=== PATIENT | male | born 1960 | race Caucasian/White ===

== ENCOUNTER 2016-08-18 17:16 | Emergency (ER) | payer MEDICARE ==
[~2016-08-18] VITALS: Ht 180.3 cm; Wt 78.0 kg
[~2016-08-18 17:16] MED LIST: 'XANAX1 MG PO; AMLODIPINE BESYL5 MG PO; APAP/OXYCODONE1 TA2 PO; ASPIRIN81 M1 PO; ATIVAN1 MG PO; ATORVASTATIN CA40 M1 PO; CARVEDILOL12.5 MG PO; CIPROFLOXACIN500 MG PO; CLOPIDOGREL75 MG PO; COREG12.5 MG PO; DOXYCYCLINE100 M3 PO; LIPITOR40 MG PO; LISINOPRIL5 MG PO; MULTI VITAMINS1 TAB PO; NATURE'S BLEND F1 MG PO; NITROTAB0.3 MG SL; OXYCODONE/APAP1 TA2 PO; PLAVIX75 MG PO; PREDNISONE10 MG PO; PROVENTIL0.09 MG/A1 INH; VITAMIN B-11 TAB PO; XANAX1 MG PO; ZESTRIL20 MG PO
[2016-08-18] MEDS ORDERED: FLONASE ALLERG9.9 ML NAS (17:55)
[2016-08-18] MEDS ORDERED: AUGMENTIN 875875 MG PO (17:55)
== END 2016-08-18 18:00 | disposition home or self-care (01) ==
LOC: ED 17:16
DX: J01.10 Acute frontal sinusitis, unspecified (principal); F17.200 Nicotine dependence, unspecified, uncomplicated; Z95.5 Presence of coronary angioplasty implant and graft; Z79.899 Other long term (current) drug therapy

== ENCOUNTER 2016-09-26 19:51 | Emergency (ER) | payer MEDICARE ==
[~2016-09-26] VITALS: Ht 180.3 cm; Wt 79.4 kg
[~2016-09-26 19:51] MED LIST changes: +AUGMENTIN 875875 MG PO; +FLONASE ALLERG9.9 ML NAS
== END 2016-09-26 20:44 | disposition home or self-care (01) ==
LOC: ED 19:51
DX: S80.01XA Contusion of right knee, initial encounter (principal); Z79.899 Other long term (current) drug therapy; W18.39XA Other fall on same level, initial encounter; Y93.89 Activity, other specified; Y92.89 Other specified places as the place of occurrence of the external cause; Y99.8 Other external cause status

== ENCOUNTER 2016-11-04 07:19 | Inpatient (IN) | payer MEDICARE ==
[2016-11-04] VITALS (9 sets, daily range): BP systolic 70–150; BP diastolic 40–96
[~2016-11-04] VITALS: Ht 180.3 cm; Wt 82.1 kg
[2016-11-04 08:08] LABS: BASO # 0.1 10*3/uL (0.0-0.1); BASO % 0.8 % (0.0-1.0); EOS # 0.1 10*3/uL (0.0-0.4); EOS % 1.3 % (1.0-4.0); HEMATOCRIT 43.1 % (42.0-52.0); IG # 0.1 10*3/uL (0.0-0.1); LYMPH # 2.3 10*3/uL (1.3-4.4); LYMPH % 22.5 % (27.0-41.0); MEAN CELL VOLUME 96.4 fl (80.0-94.0); MEAN CORPUSCULAR HGB 33.6 pg (27.0-31.0); MEAN CORPUSCULAR HGB CONC 34.8 g/dl (33.0-37.0); MEAN PLATELET VOLUME 11.8 fl (9.6-12.3); MONO # 1.3 10*3/uL (0.1-1.0); MONO % 12.8 % (3.0-9.0); NEUT # 6.2 10*3/uL (2.3-7.9); NEUT % 61.9 % (47.0-73.0); PLATELET COUNT AUTOMATED 91 10*3/uL (130-400); RED BLOOD COUNT 4.47 10*6/uL (4.50-5.90); RED CELL DISTRI WIDTH 12.7 % (0-14.5); WHITE BLOOD COUNT 10.1 10*3/uL (4.8-10.8)
[2016-11-04 08:22] LABS: ALBUMIN 4.5 gm/dl (3.1-4.5); BILIRUBIN, TOTAL 1.3 mg/dl (0.2-1.0); MAGNESIUM 1.8 mg/dL (1.5-2.1); POTASSIUM 3.2 mmol/L (3.5-5.1); TOTAL PROTEIN 8.5 gm/dL (6.4-8.2)
[2016-11-05] VITALS: BP 130/70
[2016-11-05 04:00] VITALS: BP 128/81
[2016-11-05 05:28] LABS: ALBUMIN 3.3 gm/dl (3.1-4.5); BILIRUBIN, TOTAL 0.8 mg/dl (0.2-1.0); FREE T4 1.08 ng/dl (0.76-1.46); MAGNESIUM 1.5 mg/dL (1.5-2.1); TOTAL PROTEIN 6.4 gm/dL (6.4-8.2)
[2016-11-05 05:32] LABS: THYROID STIM HORMONE (HS) 1.24 uIU/ml (0.358-4.75)
[2016-11-05 05:38] LABS: PHOSPHOROUS 0.9 mg/dL (2.5-4.9)
[2016-11-05 05:59] LABS: PROTHROMBIN TIME 10.2 SECONDS (9.0-12.4)
[2016-11-05 06:16] LABS: BASO # 0.1 10*3/uL (0.0-0.1); BASO % 1.1 % (0.0-1.0); EOS # 0.2 10*3/uL (0.0-0.4); EOS % 4.3 % (1.0-4.0); LYMPH # 1.5 10*3/uL (1.3-4.4); LYMPH % 26.2 % (27.0-41.0); MEAN CELL VOLUME 97.5 fl (80.0-94.0); MEAN CORPUSCULAR HGB CONC 34.9 g/dl (33.0-37.0); MEAN PLATELET VOLUME 13.7 fl (9.6-12.3); MONO # 0.7 10*3/uL (0.1-1.0); MONO % 11.6 % (3.0-9.0); NEUT # 3.2 10*3/uL (2.3-7.9); NEUT % 56.1 % (47.0-73.0); RED BLOOD COUNT 3.59 10*6/uL (4.50-5.90); RED CELL DISTRI WIDTH 12.7 % (0-14.5); WHITE BLOOD COUNT 5.6 10*3/uL (4.8-10.8)
[2016-11-05 06:29] LABS: HEMOGLOBIN 12.2 g/dl (14.0-18.0); PLATELET COUNT AUTOMATED 60 10*3/uL (130-400)
[2016-11-05 07:05] LABS: HEMOGLOBIN A1c 4.8 % (4.8-5.6)
[2016-11-05 08:00] VITALS: BP 126/84
[2016-11-05 08:06] LABS: FOLIC ACID 13.49 ng/mL (>5.38)
[2016-11-05 12:00] VITALS: BP 144/87
[2016-11-05 13:36] LABS: BUN 29 mg/dl (7-24); CARBON DIOXIDE 25 mmol/L (21-32); CHLORIDE 105 mmol/L (98-107); EST GLOM FILT AFRICAN AMERICAN > 60 ml/min; GLUCOSE 118 mg/dL (65-99); POTASSIUM 3.2 mmol/L (3.5-5.1); SODIUM 141 mmol/L (136-145)
[2016-11-05 16:00] VITALS: BP 151/84
[2016-11-05 20:00] VITALS: BP 138/95
[2016-11-06] VITALS: BP 143/89
[2016-11-06 04:00] VITALS: BP 159/89
[2016-11-06 06:02] LABS: ALBUMIN 3.5 gm/dl (3.1-4.5); ALKALINE PHOSPHATASE 168 U/L (45-117); BILIRUBIN, TOTAL 0.5 mg/dl (0.2-1.0); CARBON DIOXIDE 24 mmol/L (21-32); CHLORIDE 108 mmol/L (98-107); EST GLOM FILT AFRICAN AMERICAN > 60 ml/min; GLUCOSE 106 mg/dL (65-99); MAGNESIUM 1.6 mg/dL (1.5-2.1); PHOSPHOROUS 2.1 mg/dL (2.5-4.9); POTASSIUM 3.3 mmol/L (3.5-5.1); SGOT/AST 123 IU/L (3-35); SGPT/ALT 98 U/L (12-78); SODIUM 143 mmol/L (136-145); TOTAL PROTEIN 6.7 gm/dL (6.4-8.2)
[2016-11-06 06:07] LABS: BASO # 0.1 10*3/uL (0.0-0.1); BASO % 1.1 % (0.0-1.0); EOS # 0.2 10*3/uL (0.0-0.4); EOS % 4.2 % (1.0-4.0); HEMATOCRIT 37.2 % (42.0-52.0); HEMOGLOBIN 12.4 g/dl (14.0-18.0); IG # 0.1 10*3/uL (0.0-0.1); LYMPH # 1.4 10*3/uL (1.3-4.4); LYMPH % 27.5 % (27.0-41.0); MEAN CELL VOLUME 99.5 fl (80.0-94.0); MEAN CORPUSCULAR HGB 33.2 pg (27.0-31.0); MEAN CORPUSCULAR HGB CONC 33.3 g/dl (33.0-37.0); MEAN PLATELET VOLUME 13.4 fl (9.6-12.3); MONO # 0.6 10*3/uL (0.1-1.0); NEUT # 2.8 10*3/uL (2.3-7.9); NEUT % 54.1 % (47.0-73.0); PLATELET COUNT AUTOMATED 61 10*3/uL (130-400); RED BLOOD COUNT 3.74 10*6/uL (4.50-5.90); RED CELL DISTRI WIDTH 12.6 % (0-14.5); WHITE BLOOD COUNT 5.2 10*3/uL (4.8-10.8)
[2016-11-06 06:07] LABS: BUN 18 mg/dl (7-24)
[2016-11-06 08:00] VITALS: BP 162/102
[2016-11-06 12:00] VITALS: BP 162/99
[2016-11-06 15:48] VITALS: BP 144/93
[2016-11-06 20:00] VITALS: BP 152/96
[2016-11-07] VITALS: BP 144/84
[2016-11-07 06:15] LABS: BASO # 0.1 10*3/uL (0.0-0.1); BASO % 1.1 % (0.0-1.0); EOS # 0.3 10*3/uL (0.0-0.4); HEMATOCRIT 39.1 % (42.0-52.0); HEMOGLOBIN 13.3 g/dl (14.0-18.0); IG # 0.1 10*3/uL (0.0-0.1); LYMPH # 1.4 10*3/uL (1.3-4.4); LYMPH % 21.9 % (27.0-41.0); MEAN CELL VOLUME 97.3 fl (80.0-94.0); MEAN CORPUSCULAR HGB 33.1 pg (27.0-31.0); MEAN PLATELET VOLUME 12.6 fl (9.6-12.3); MONO # 0.9 10*3/uL (0.1-1.0); NEUT # 3.8 10*3/uL (2.3-7.9); NEUT % 56.8 % (47.0-73.0); RED BLOOD COUNT 4.02 10*6/uL (4.50-5.90); RED CELL DISTRI WIDTH 12.3 % (0-14.5); WHITE BLOOD COUNT 6.6 10*3/uL (4.8-10.8)
[2016-11-07 06:21] LABS: CHLORIDE 103 mmol/L (98-107); SODIUM 139 mmol/L (136-145)
[2016-11-07 06:25] LABS: PLATELET COUNT AUTOMATED 80 10*3/uL (130-400)
[2016-11-07 06:32] LABS: ALBUMIN 3.5 gm/dl (3.1-4.5); ALKALINE PHOSPHATASE 120 U/L (45-117); BILIRUBIN, TOTAL 0.5 mg/dl (0.2-1.0); BUN 12 mg/dl (7-24); CARBON DIOXIDE 23 mmol/L (21-32); EST GLOM FILT AFRICAN AMERICAN > 60 ml/min; GLUCOSE 179 mg/dL (65-99); MAGNESIUM 1.2 mg/dL (1.5-2.1); PHOSPHOROUS 3.2 mg/dL (2.5-4.9); SGOT/AST 97 IU/L (3-35); SGPT/ALT 98 U/L (12-78); TOTAL PROTEIN 6.9 gm/dL (6.4-8.2)
[2016-11-07] MEDS ORDERED: D-1000 185 MG-11 TAB PO (07:52)
[2016-11-07] MEDS ORDERED: ATARAX,VISTARIL50 MG PO (07:52)
[2016-11-07] MEDS ORDERED: LISINOPRIL10 M1 PO (07:52)
[2016-11-07 08:00] VITALS: BP 138/82
[2016-11-07] MEDS ORDERED: KLOR-CON M1010 ME1 PO (08:00)
== END 2016-11-07 11:01 | disposition home or self-care (01) | DRG 896 ==
LOC: ED 07:19 → EDHOLD 10:15 → ICCU 10:15 → 4E 11-06 17:13
PROVIDERS: Emergency Medicine; Internal Medicine; Internal Medicine Nephrology; Student in an Organized Health Care Education/Training Program
DX: F10.230 Alcohol dependence with withdrawal, uncomplicated (principal); N17.0 Acute kidney failure with tubular necrosis; I95.9 Hypotension, unspecified; E87.8 Other disorders of electrolyte and fluid balance, not elsewhere classified; D69.6 Thrombocytopenia, unspecified; J43.9 Emphysema, unspecified; E87.1 Hypo-osmolality and hyponatremia; E86.0 Dehydration; E87.6 Hypokalemia; R73.9 Hyperglycemia, unspecified; F17.210 Nicotine dependence, cigarettes, uncomplicated; R29.6 Repeated falls; G89.29 Other chronic pain; Y90.9 Presence of alcohol in blood, level not specified; E80.6 Other disorders of bilirubin metabolism; D72.810 Lymphocytopenia; D72.821 Monocytosis (symptomatic); I25.10 Atherosclerotic heart disease of native coronary artery without angina pectoris; E78.5 Hyperlipidemia, unspecified; I10 Essential (primary) hypertension; Z71.6 Tobacco abuse counseling; Z95.5 Presence of coronary angioplasty implant and graft; I25.2 Old myocardial infarction; Z80.9 Family history of malignant neoplasm, unspecified; Z82.49 Family history of ischemic heart disease and other diseases of the circulatory system; Z79.1 Long term (current) use of non-steroidal anti-inflammatories (NSAID); Z79.899 Other long term (current) drug therapy

== ENCOUNTER 2017-01-24 11:34 | Emergency (ER) | payer MEDICARE ==
[~2017-01-24] VITALS: Ht 175.2 cm; Wt 81.6 kg
[~2017-01-24 11:34] MED LIST changes: +ATARAX,VISTARIL50 MG PO; +D-1000 185 MG-11 TAB PO; +KLOR-CON M1010 ME1 PO; +LISINOPRIL10 M1 PO
[2017-01-24 13:41] LABS: BASO # 0.1 10*3/uL (0.0-0.1); BASO % 1.4 % (0.0-1.0); EOS # 0.4 10*3/uL (0.0-0.4); EOS % 4.9 % (1.0-4.0); HEMATOCRIT 47.8 % (42.0-52.0); HEMOGLOBIN 16.2 g/dl (14.0-18.0); LYMPH # 2.5 10*3/uL (1.3-4.4); LYMPH % 32.6 % (27.0-41.0); MEAN CELL VOLUME 97.8 fl (80.0-94.0); MEAN CORPUSCULAR HGB 33.1 pg (27.0-31.0); MEAN CORPUSCULAR HGB CONC 33.9 g/dl (33.0-37.0); MEAN PLATELET VOLUME 10.3 fl (9.6-12.3); MONO # 0.8 10*3/uL (0.1-1.0); MONO % 10.4 % (3.0-9.0); NEUT # 3.9 10*3/uL (2.3-7.9); NEUT % 50.2 % (47.0-73.0); PLATELET COUNT AUTOMATED 152 10*3/uL (130-400); RED BLOOD COUNT 4.89 10*6/uL (4.50-5.90); WHITE BLOOD COUNT 7.7 10*3/uL (4.8-10.8)
[2017-01-24 13:48] LABS: INTERNATIONAL NORM RATIO 0.9 (2.0-3.5)
[2017-01-24 13:55] LABS: ALBUMIN 4.3 gm/dl (3.1-4.5); ALKALINE PHOSPHATASE 75 U/L (45-117); BUN 12 mg/dl (7-24); CHLORIDE 108 mmol/L (98-107); CREATININE 1.13 mg/dL (0.70-1.30); POTASSIUM 4.6 mmol/L (3.5-5.1); SGOT/AST 73 IU/L (3-35); SGPT/ALT 69 U/L (12-78); SODIUM 143 mmol/L (136-145); TOTAL PROTEIN 8.7 gm/dL (6.4-8.2)
[2017-01-24 13:56] LABS: TROPONIN I < 0.015 ng/ml (<0.045)
[2017-01-24 13:57] LABS: BILIRUBIN NEGATIVE (NEGATIVE); BLOOD NEGATIVE (NEGATIVE); CLARITY CLEAR (CLEAR); COLOR YELLOW (YELLOW); GLUCOSE NEGATIVE (NEGATIVE); KETONE NEGATIVE (NEGATIVE); LEUKO ESTERASE NEGATIVE (NEGATIVE); NITRITE NEGATIVE (NEGATIVE); UROBILINOGEN 0.2 E.U./dl (0.2-1.0)
[2017-01-24 14:01] LABS: THYROID STIM HORMONE (HS) 0.509 uIU/ml (0.358-4.75)
[2017-01-24 14:05] LABS: BACTERIA 1+; EPITHELIAL CELLS 0-2; RBC 0-2 rbc/hpf (0-2); URINE AMPHETAMINES < 1000 (1000ng/ml); URINE BARBITURATES < 200 (200ng/ml); URINE BENZODIAZEPINES > 200 (200ng/ml); URINE CANNABINOIDS (THC) < 50 (50ng/ml); URINE COCAINE < 300 (300ng/ml); URINE METHADONE < 300 (300ng/ml); URINE OPIATES < 300 (300ng/ml); WBC 0-2 wbc/hpf (0-5)
[2017-01-24 14:06] LABS: URINE PHENCYCLIDINE < 25 (25ng/ml)
== END 2017-01-24 16:06 | disposition home or self-care (01) ==
LOC: ED 11:34
PROVIDERS: Emergency Medicine
DX: F10.129 Alcohol abuse with intoxication, unspecified (principal); I25.2 Old myocardial infarction; I25.10 Atherosclerotic heart disease of native coronary artery without angina pectoris; I10 Essential (primary) hypertension; E78.5 Hyperlipidemia, unspecified; F17.200 Nicotine dependence, unspecified, uncomplicated; Z79.899 Other long term (current) drug therapy

== ENCOUNTER 2017-03-12 10:58 | Inpatient (IN) | payer MEDICARE ==
[2017-03-12] VITALS (8 sets, daily range): BP systolic 82–137; BP diastolic 41–75
[~2017-03-12] VITALS: Ht 180.3 cm; Wt 80.9 kg
[2017-03-12 11:34] LABS: BASO % 0.4 % (0.0-1.0); EOS % 0.2 % (1.0-4.0); HEMATOCRIT 38.3 % (42.0-52.0); HEMOGLOBIN 13.4 g/dl (14.0-18.0); LYMPH # 1.6 10*3/uL (1.3-4.4); LYMPH % 17.7 % (27.0-41.0); MEAN CORPUSCULAR HGB 33.3 pg (27.0-31.0); MEAN PLATELET VOLUME 11.8 fl (9.6-12.3); MONO # 1.3 10*3/uL (0.1-1.0); MONO % 14.7 % (3.0-9.0); NEUT % 66.6 % (47.0-73.0); PLATELET COUNT AUTOMATED 122 10*3/uL (130-400); RED BLOOD COUNT 4.03 10*6/uL (4.50-5.90); RED CELL DISTRI WIDTH 12.7 % (0-14.5)
[2017-03-12 11:53] LABS: ALBUMIN 4.1 gm/dl (3.1-4.5); ALKALINE PHOSPHATASE 62 U/L (45-117); BUN 80 mg/dl (7-24); CHLORIDE 87 mmol/L (98-107); CREATININE 4.63 mg/dL (0.70-1.30); POTASSIUM 4.1 mmol/L (3.5-5.1); SGOT/AST 69 IU/L (3-35); SGPT/ALT 60 U/L (12-78); SODIUM 130 mmol/L (136-145); TOTAL PROTEIN 8.1 gm/dL (6.4-8.2)
[2017-03-12 11:55] LABS: TROPONIN I < 0.015 ng/ml (<0.045)
--- NOTE | 2017-03-12 11:59 | NUR ---
PATIENT STATES THAT HE FEELS SLIGHTLY BETTER AFTER THE BREATHING TREATMENT.
[2017-03-12 12:27] LABS: BILIRUBIN 1+ (NEGATIVE); BLOOD 1+ (NEGATIVE); CLARITY CLEAR (CLEAR); COLOR YELLOW (YELLOW); GLUCOSE NEGATIVE (NEGATIVE); KETONE 1+ (NEGATIVE); LEUKO ESTERASE NEGATIVE (NEGATIVE); NITRITE NEGATIVE (NEGATIVE); PH 5.5 (5.0-9.0); UROBILINOGEN 0.2 E.U./dl (0.2-1.0)
[2017-03-12 12:36] LABS: URINE AMPHETAMINES < 1000 (1000ng/ml); URINE BARBITURATES < 200 (200ng/ml); URINE BENZODIAZEPINES < 200 (200ng/ml); URINE CANNABINOIDS (THC) < 50 (50ng/ml); URINE COCAINE < 300 (300ng/ml); URINE METHADONE < 300 (300ng/ml); URINE OPIATES < 300 (300ng/ml)
[2017-03-12 12:37] LABS: URINE PHENCYCLIDINE < 25 (25ng/ml)
--- NOTE | 2017-03-12 12:37 | NUR ---
PATIENT REPORT TO JAQUAN ALDRIDGE AT THIS TIME.
--- NOTE | 2017-03-12 12:43 | NUR ---
MED REC UPDATED PER THE PHARMACIST AT [facility]. NO MEDS FILLED SINCE AUGUST. THE PAST PRESCRIPTIONS SHE GOT WERE IN OCTOBER BUT WERE NEVER PICKED UP.
--- NOTE | 2017-03-12 12:52 | NUR ---
PATIENT TAKEN TO ICCU AT THIS TIME BY THIS NURSE AND SERGEY CUEVAS. JAQUAN ALDRIDGE AT BEDSIDE WITH PATIENT.
--- NOTE | 2017-03-12 12:53 | NUR ---
A 56, admitted to ICCU, under the services of AVIS Sprague DO with a diagnosis of KEVIN, ETOH WITHDRAWAL. Chief complaint is DIZZINESS. Patient arrived via stretcher from ER. Monitor applied. Initial assessment completed. Vital signs taken and recorded. AVIS SPRAGUE DO notified of admission to the unit. Orders received. See assessment for past medical history, medications and allergies. Patient and/or family oriented to unit. [facility] ICCU visitation policy reviewed. Clothing/patient valuable form completed. CARLOS HAUSER
--- NOTE | 2017-03-12 13:00 | NUR ---
PATIENT MED LIST UPDATED PER PILLS BOTTLES HE HAD WITH HIM.
[2017-03-12] MEDS ORDERED: XANAX1 MG PO (13:31)
[2017-03-12] MEDS ORDERED: PERCOCET 7.5-31 EACH PO (13:31)
[2017-03-12] MEDS ORDERED: ZANTAC 150150 MG PO (13:33)
[2017-03-12] MEDS ORDERED: LIPITOR40 MG PO (13:34)
[2017-03-12] MEDS ORDERED: CLARITIN10 MG PO (13:35)
[2017-03-12] MEDS ORDERED: PLAVIX75 M1 PO (13:36)
[2017-03-12] MEDS ORDERED: COREG12.5 M1 PO (13:36)
[2017-03-12] MEDS ORDERED: ZESTRIL20 MG PO (13:36)
[2017-03-12 13:37] LABS: ACT PARTIAL THROMBO TIME 27.9 SECONDS (20.8-31.5); INTERNATIONAL NORM RATIO 0.9 (2.0-3.5)
--- NOTE | 2017-03-12 15:19 | NUR ---
DR. FARAH CALLED EARLIER AND ORDERS RECIEVED.
--- NOTE | 2017-03-12 16:36 | NUR ---
POST RESIDUAL VOID SHOWING 38ML ON BLADDER SCAN.
[2017-03-13] VITALS (7 sets, daily range): BP systolic 107–160; BP diastolic 40–96
[2017-03-13 05:54] LABS: ALBUMIN 3.4 gm/dl (3.1-4.5); CREATININE 2.53 mg/dL (0.70-1.30); FREE T4 0.93 ng/dl (0.76-1.46); PHOSPHOROUS 1.3 mg/dL (2.5-4.9); TOTAL PROTEIN 6.8 gm/dL (6.4-8.2)
[2017-03-13 06:02] LABS: THYROID STIM HORMONE (HS) 0.243 uIU/ml (0.358-4.75)
[2017-03-13 06:10] LABS: BASO % 0.4 % (0.0-1.0); EOS # 0.1 10*3/uL (0.0-0.4); EOS % 0.9 % (1.0-4.0); HEMATOCRIT 33.7 % (42.0-52.0); HEMOGLOBIN 12.2 g/dl (14.0-18.0); LYMPH # 1.6 10*3/uL (1.3-4.4); LYMPH % 20.3 % (27.0-41.0); MEAN CELL VOLUME 92.1 fl (80.0-94.0); MEAN CORPUSCULAR HGB 33.3 pg (27.0-31.0); MEAN CORPUSCULAR HGB CONC 36.2 g/dl (33.0-37.0); MEAN PLATELET VOLUME 12.1 fl (9.6-12.3); MONO # 1.4 10*3/uL (0.1-1.0); MONO % 18.9 % (3.0-9.0); NEUT # 4.5 10*3/uL (2.3-7.9); PLATELET COUNT AUTOMATED 95 10*3/uL (130-400); RED BLOOD COUNT 3.66 10*6/uL (4.50-5.90); RED CELL DISTRI WIDTH 12.5 % (0-14.5); WHITE BLOOD COUNT 7.6 10*3/uL (4.8-10.8)
[2017-03-13 06:21] LABS: ACT PARTIAL THROMBO TIME 27.1 SECONDS (20.8-31.5); INTERNATIONAL NORM RATIO 0.9 (2.0-3.5)
[2017-03-13 07:41] LABS: VITAMIN D, 25-HYDROXY 19.5 ng/mL (30-100)
--- NOTE | 2017-03-13 07:42 | NUR ---
MEDICATED WITH ATIVAN IV FOR AGITATION AND SHAKING.
--- NOTE | 2017-03-13 08:26 | NUR ---
ATIVAN HAS HELPED REDUCE HIS AGITATIONA ND SHAKING.
--- NOTE | 2017-03-13 11:56 | NUR ---
PT ASSESSED FOR PRN BREATHING TX. PT BBS CLEAR AND 97% ON ROOM AIR. PT INFORMED TO CALL IF HE NEEDS A TX.
--- NOTE | 2017-03-13 15:48 | NUR ---
MEDICATED WITH ATIVAN FOR C/O AGITATIN AND SHAKINESS.
--- NOTE | 2017-03-13 16:06 | NUR ---
EARLIER MEDICATION WAS EFFECTIVE FOR ANXIETY
--- NOTE | 2017-03-13 19:47 | NUR ---
PATIENT LYING IN BED, DOES HAVE COMPLAINT OF ANXIETY, WILL GIVE ATIVAN WHEN TIME ALLOWS. PATIENT STATED HE IS EATING BETTER. PATIENT STATED HE WAS COUGHING AND REQUESTED A BREATHING TREATMENT. WILL CONTINUE TO MONITOR. PATIENT IN VIEW OF STAFF.
--- NOTE | 2017-03-13 21:30 | NUR ---
PATIENT GIVEN ATIVAN TO HELP WITH ANXIETY, AND TESSELONS FOR COUGH. WILL REASSESS.
--- NOTE | 2017-03-13 22:10 | NUR ---
24 HR chart check completed.
[2017-03-14] VITALS: BP 145/88
--- NOTE | 2017-03-14 00:25 | NUR ---
SCHEDULED LIBRIUM GIVEN.
--- NOTE | 2017-03-14 01:25 | NUR ---
NO SIGNS OF SIGNS OF DT'S. LIBRIUM EFFECTIVE.
--- NOTE | 2017-03-14 02:01 | NUR ---
Hep Lock discontinued LEFT AC. IV CONTINUOUSLY BEEPING DOWNSTREAM OCCULSION. Site asymptomatic. Pressure applied. Sterile dressing applied. GINO PARRA
[2017-03-14 04:00] VITALS: BP 152/91
--- NOTE | 2017-03-14 04:05 | NUR ---
ATIVAN GIVEN FOR PATIENTS REQUEST FOR C/O DT'S. ANXIETY AND MILD TREMORS NOTED.
--- NOTE | 2017-03-14 05:00 | NUR ---
NO SIGNS OF DT'S. ATIVAN EFFECTIVE.
[2017-03-14 06:03] LABS: BASO # 0.1 10*3/uL (0.0-0.1); BASO % 0.9 % (0.0-1.0); EOS # 0.1 10*3/uL (0.0-0.4); EOS % 2.2 % (1.0-4.0); HEMATOCRIT 33.8 % (42.0-52.0); HEMOGLOBIN 11.9 g/dl (14.0-18.0); LYMPH # 1.9 10*3/uL (1.3-4.4); LYMPH % 29.1 % (27.0-41.0); MEAN CELL VOLUME 94.4 fl (80.0-94.0); MEAN CORPUSCULAR HGB 33.2 pg (27.0-31.0); MEAN CORPUSCULAR HGB CONC 35.2 g/dl (33.0-37.0); MONO # 1.3 10*3/uL (0.1-1.0); NEUT % 47.5 % (47.0-73.0); PHOSPHOROUS 2.2 mg/dL (2.5-4.9); PLATELET COUNT AUTOMATED 74 10*3/uL (130-400); RED BLOOD COUNT 3.58 10*6/uL (4.50-5.90); RED CELL DISTRI WIDTH 12.3 % (0-14.5); WHITE BLOOD COUNT 6.4 10*3/uL (4.8-10.8)
[2017-03-14 07:40] LABS: ALBUMIN 3.3 gm/dl (3.1-4.5); CHLORIDE 104 mmol/L (98-107); CREATININE 1.31 mg/dL (0.70-1.30); PHOSPHOROUS 2.1 mg/dL (2.5-4.9); POTASSIUM 3.1 mmol/L (3.5-5.1); SODIUM 138 mmol/L (136-145)
[2017-03-14 08:00] VITALS: BP 158/57
[2017-03-14 08:00] LABS: BUN 31 mg/dl (7-24)
--- NOTE | 2017-03-14 11:13 | NUR ---
Virology Teacher in to talk to patient. Patient states lives at home. There are 0 steps in the home. Physician: Mark Nolan Pharmacy: [facility] Home health services: no Patient's level of ADLs: MINIMAL ASSIST Patient has working utilities: yes DME: none Follow-up physician's appointment after d/c: will be made by hospitalist nurse director upon discharge Does patient want to access PORTAL?: no Discharge plan not interested in cane or walker at this time. Patient states he leans on brown or furniture for assistance in walking. Not interested in a cane or walker at this time. [place] [address] with his brother who lives in a house about 100 [address] from his house. PANCHITO MURRAY
--- NOTE | 2017-03-14 11:48 | NUR ---
MEDICATED WITH IV ATIVAN ORDERED FOR RESTLESSNESS AND AGITATION. LOOKING FOR CELL PHONE AND FOUND IT IN GARBAGE.
[2017-03-14 12:00] VITALS: BP 147/93
--- NOTE | 2017-03-14 13:00 | NUR ---
ATIVAN EFFECTIVE. RESTING WITH EYES CLOSED.
[2017-03-14 16:00] VITALS: BP 148/90
--- NOTE | 2017-03-14 18:51 | NUR ---
GETTING DRESSED. VOICES HE WANTS TO GO HOME. MEDICATED WITH ATIVAN 2MG IV FOR RESTLESSNESS AND SIGNS OF ALCOHOL WITHDRAWAL.
[2017-03-14 20:00] VITALS: BP 146/90
--- NOTE | 2017-03-14 20:16 | NUR ---
1930 RESTING IN BED WITH EYES CLOSED. APPEARS TO BE SLEEPING. EARLIER ATIVAN EFFECTIVE. 2009 UP TO BS WITH 1 ASSIST. TOLERATED WELL. THINKS IT IT "MARCH 15". IV FLUIDS CONT. NO DISTRESS NOTED. NO C/O'S VOICED.
--- NOTE | 2017-03-14 22:59 | NUR ---
ROUTINE LIBRIUM GIVEN ORDERED AND VISTARIL PER REQUEST FOR ANXIETY.WILL MONITOR.
--- NOTE | 2017-03-14 23:49 | NUR ---
EARLIER VISTARIL EFFECTIVE. APPEARS TO BE SLEEPING.
[2017-03-15] VITALS: BP 148/89
--- NOTE | 2017-03-15 01:03 | NUR ---
0100 AtIVAN 2MG IV GIVEN PER REQUEST FOR ANXIETY. WILL MONITOR.
--- NOTE | 2017-03-15 01:30 | NUR ---
EARLIER ATIVAN EFFECTIVE. RESTING IN BED WITH EYES CLOSED.APPEARS TO BE SLEEPING.
[2017-03-15 04:00] VITALS: BP 150/92
[2017-03-15 04:50] LABS: BASO # 0.1 10*3/uL (0.0-0.1); BASO % 1.1 % (0.0-1.0); EOS # 0.4 10*3/uL (0.0-0.4); EOS % 5.2 % (1.0-4.0); HEMOGLOBIN 11.7 g/dl (14.0-18.0); LYMPH # 2.2 10*3/uL (1.3-4.4); LYMPH % 30.4 % (27.0-41.0); MEAN CELL VOLUME 94.7 fl (80.0-94.0); MEAN CORPUSCULAR HGB 32.6 pg (27.0-31.0); MEAN CORPUSCULAR HGB CONC 34.4 g/dl (33.0-37.0); MEAN PLATELET VOLUME 11.6 fl (9.6-12.3); MONO % 13.6 % (3.0-9.0); NEUT # 3.6 10*3/uL (2.3-7.9); NEUT % 49.2 % (47.0-73.0); PLATELET COUNT AUTOMATED 90 10*3/uL (130-400); RED BLOOD COUNT 3.59 10*6/uL (4.50-5.90); RED CELL DISTRI WIDTH 12.2 % (0-14.5); WHITE BLOOD COUNT 7.3 10*3/uL (4.8-10.8)
[2017-03-15 05:06] LABS: ALBUMIN 3.3 gm/dl (3.1-4.5); CHLORIDE 105 mmol/L (98-107); CREATININE 1.14 mg/dL (0.70-1.30); PHOSPHOROUS 2.7 mg/dL (2.5-4.9); POTASSIUM 3.6 mmol/L (3.5-5.1); SODIUM 140 mmol/L (136-145)
[2017-03-15 05:07] LABS: BUN 17 mg/dl (7-24)
--- NOTE | 2017-03-15 06:16 | NUR ---
SLEPT WELL THIS SHIFT. IV FLUIDS CONT. NO DISTRESS NOTED. CONDITION GUARDED.
[2017-03-15 08:00] VITALS: BP 158/98
--- NOTE | 2017-03-15 10:20 | NUR ---
Rn Gynecology in to see patient. No current needs or request. Discharge plan is to send patient home upon discharge.
[2017-03-15 12:00] VITALS: BP 158/94
[2017-03-15] MEDS ORDERED: VITAMIN D-32000 UNIT PO (14:08)
--- NOTE | 2017-03-15 14:50 | NUR ---
Discharge instructions reviewed with patient/family. Patient receptive and verbalizes understanding. Follow-up care arranged. Written instructions given to patient/family. GIL SALTER
== END 2017-03-15 14:50 | disposition home or self-care (01) | DRG 896 ==
LOC: ED 10:58 → ICCU 12:16 → EDHOLD 12:16 → ICCU 12:25
PROVIDERS: Emergency Medicine; Internal Medicine; Internal Medicine Nephrology; Nurse Practitioner; Student in an Organized Health Care Education/Training Program; ADMIT Internal Medicine
DX: F10.230 Alcohol dependence with withdrawal, uncomplicated (principal); N17.0 Acute kidney failure with tubular necrosis; F10.220 Alcohol dependence with intoxication, uncomplicated; I95.9 Hypotension, unspecified; E87.2 Acidosis; E87.8 Other disorders of electrolyte and fluid balance, not elsewhere classified; E83.51 Hypocalcemia; E83.41 Hypermagnesemia; E83.39 Other disorders of phosphorus metabolism; E87.1 Hypo-osmolality and hyponatremia; Z71.6 Tobacco abuse counseling; R82.4 Acetonuria; R31.9 Hematuria, unspecified; I10 Essential (primary) hypertension; D53.9 Nutritional anemia, unspecified; D47.3 Essential (hemorrhagic) thrombocythemia; D72.810 Lymphocytopenia; E87.6 Hypokalemia; R74.0 Nonspecific elevation of levels of transaminase and lactic acid dehydrogenase [LDH]; Y90.9 Presence of alcohol in blood, level not specified; W18.39XA Other fall on same level, initial encounter; R82.2 Biliuria; R29.6 Repeated falls; F17.210 Nicotine dependence, cigarettes, uncomplicated; E78.00 Pure hypercholesterolemia, unspecified; I25.10 Atherosclerotic heart disease of native coronary artery without angina pectoris; F41.9 Anxiety disorder, unspecified; E86.0 Dehydration; I25.2 Old myocardial infarction; Z98.61 Coronary angioplasty status; Z79.899 Other long term (current) drug therapy; Z82.49 Family history of ischemic heart disease and other diseases of the circulatory system; Z80.8 Family history of malignant neoplasm of other organs or systems; Y93.89 Activity, other specified; Y92.89 Other specified places as the place of occurrence of the external cause; Y99.8 Other external cause status

== ENCOUNTER 2017-07-31 11:06 | Emergency (ER) | payer MEDICARE ==
[~2017-07-31] VITALS: Ht 180.3 cm; Wt 77.1 kg
[~2017-07-31 11:06] MED LIST changes: +CLARITIN10 MG PO; +COREG12.5 M1 PO; +PERCOCET 7.5-31 EACH PO; +PLAVIX75 M1 PO; +VITAMIN D-32000 UNIT PO; +ZANTAC 150150 MG PO
[2017-07-31 11:43] LABS: BASO # 0.1 10*3/uL (0.0-0.1); BASO % 1.5 % (0.0-1.0); EOS # 0.3 10*3/uL (0.0-0.4); EOS % 4.8 % (1.0-4.0); HEMATOCRIT 42.2 % (42.0-52.0); HEMOGLOBIN 14.7 g/dl (14.0-18.0); LYMPH # 1.6 10*3/uL (1.3-4.4); LYMPH % 31.3 % (27.0-41.0); MEAN CELL VOLUME 94.4 fl (80.0-94.0); MEAN CORPUSCULAR HGB 32.9 pg (27.0-31.0); MEAN CORPUSCULAR HGB CONC 34.8 g/dl (33.0-37.0); MEAN PLATELET VOLUME 9.8 fl (9.6-12.3); MONO # 0.9 10*3/uL (0.1-1.0); MONO % 17.2 % (3.0-9.0); NEUT # 2.3 10*3/uL (2.3-7.9); NEUT % 44.4 % (47.0-73.0); PLATELET COUNT AUTOMATED 130 10*3/uL (130-400); RED BLOOD COUNT 4.47 10*6/uL (4.50-5.90); WHITE BLOOD COUNT 5.2 10*3/uL (4.8-10.8)
[2017-07-31 11:52] LABS: ACT PARTIAL THROMBO TIME 26.5 SECONDS (20.8-31.5)
[2017-07-31 12:01] LABS: ALBUMIN 4.3 gm/dl (3.1-4.5); ALKALINE PHOSPHATASE 75 U/L (45-117); BUN 10 mg/dl (7-24); CHLORIDE 97 mmol/L (98-107); CREATININE 1.22 mg/dL (0.70-1.30); LIPASE 250 U/L (73-393); POTASSIUM 3.1 mmol/L (3.5-5.1); SGOT/AST 130 IU/L (3-35); SGPT/ALT 80 U/L (12-78); SODIUM 136 mmol/L (136-145); TOTAL PROTEIN 8.1 gm/dL (6.4-8.2); TROPONIN I < 0.015 ng/ml (<0.045)
[2017-07-31] MEDS ORDERED: PREDNISONE10 MG PO (14:04)
[2017-07-31] MEDS ORDERED: PROAIR HFA8.5 GM INH (14:04)
[2017-07-31] MEDS ORDERED: ZITHROMAX250 MG PO (14:04)
== END 2017-07-31 14:10 | disposition home or self-care (01) ==
LOC: ED 11:06
PROVIDERS: Nurse Practitioner Family
DX: J40 Bronchitis, not specified as acute or chronic (principal); F17.200 Nicotine dependence, unspecified, uncomplicated; E78.00 Pure hypercholesterolemia, unspecified; I10 Essential (primary) hypertension; E78.5 Hyperlipidemia, unspecified; I25.2 Old myocardial infarction; I25.10 Atherosclerotic heart disease of native coronary artery without angina pectoris; Z79.899 Other long term (current) drug therapy

== ENCOUNTER 2017-10-01 13:02 | Emergency (ER) | payer MEDICARE ==
[~2017-10-01] VITALS: Ht 180.3 cm; Wt 79.4 kg
[~2017-10-01 13:02] MED LIST changes: +PROAIR HFA8.5 GM INH; +ZITHROMAX250 MG PO
[2017-10-01] MEDS ORDERED: XARELTO10 MG PO (13:12)
[2017-10-01 13:39] LABS: BASO % 0.5 % (0.0-1.0); EOS % 0.5 % (1.0-4.0); HEMATOCRIT 32.8 % (42.0-52.0); LYMPH # 1.1 10*3/uL (1.3-4.4); LYMPH % 14.6 % (27.0-41.0); MEAN CELL VOLUME 106.1 fl (80.0-94.0); MEAN CORPUSCULAR HGB 35.6 pg (27.0-31.0); MEAN CORPUSCULAR HGB CONC 33.5 g/dl (33.0-37.0); MEAN PLATELET VOLUME 13.1 fl (9.6-12.3); MONO # 1.1 10*3/uL (0.1-1.0); MONO % 14.4 % (3.0-9.0); NEUT # 5.2 10*3/uL (2.3-7.9); NEUT % 68.9 % (47.0-73.0); PLATELET COUNT AUTOMATED 61 10*3/uL (130-400); RED BLOOD COUNT 3.09 10*6/uL (4.50-5.90); RED CELL DISTRI WIDTH 12.7 % (0-14.5); WHITE BLOOD COUNT 7.5 10*3/uL (4.8-10.8)
[2017-10-01 13:48] LABS: ACT PARTIAL THROMBO TIME 29.5 SECONDS (20.8-31.5)
[2017-10-01 13:59] LABS: ALBUMIN 3.4 gm/dl (3.1-4.5); ALKALINE PHOSPHATASE 101 U/L (45-117); BUN 30 mg/dl (7-24); CHLORIDE 93 mmol/L (98-107); CREATININE 1.97 mg/dL (0.70-1.30); POTASSIUM 3.6 mmol/L (3.5-5.1); SGOT/AST 379 IU/L (3-35); SGPT/ALT 166 U/L (12-78); SODIUM 133 mmol/L (136-145); TOTAL PROTEIN 7.3 gm/dL (6.4-8.2)
[2017-10-01 14:03] LABS: TROPONIN I < 0.015 ng/ml (<0.045)
== END 2017-10-01 15:39 | disposition short-term general hospital (02) ==
LOC: ED 13:02
PROVIDERS: Student in an Organized Health Care Education/Training Program
DX: S12.001A Unspecified nondisplaced fracture of first cervical vertebra, initial encounter for closed fracture (principal); K92.2 Gastrointestinal hemorrhage, unspecified; N17.9 Acute kidney failure, unspecified; I25.10 Atherosclerotic heart disease of native coronary artery without angina pectoris; I10 Essential (primary) hypertension; E78.5 Hyperlipidemia, unspecified; I25.2 Old myocardial infarction; F17.200 Nicotine dependence, unspecified, uncomplicated; Z79.899 Other long term (current) drug therapy; W18.30XA Fall on same level, unspecified, initial encounter; Y93.89 Activity, other specified; Y92.89 Other specified places as the place of occurrence of the external cause; Y99.8 Other external cause status